=== PATIENT | female | born 1960 | race Caucasian/White ===

== ENCOUNTER 2021-07-07 11:47 | Outpatient (CLI) | payer BC | END 2021-07-07 11:48 | disposition home or self-care (01) | LOC: BICMAMMO 11:47 | PROVIDERS: ATTEND Registered Nurse | DX: Z12.31 Encounter for screening mammogram for malignant neoplasm of breast (principal) | CPT/HCPCS: 77063; 77067 ==

== ENCOUNTER 2022-03-19 10:22 | Outpatient (CLI) | payer BC | END 2022-03-19 10:23 | disposition home or self-care (01) | LOC: LABBT 10:22 | PROVIDERS: ATTEND Neurological Surgery | DX: Z01.818 Encounter for other preprocedural examination (principal); M54.16 Radiculopathy, lumbar region; Z20.822 Contact with and (suspected) exposure to COVID-19 | CPT/HCPCS: 93005; 93010; U0003; U0005 ==

== ENCOUNTER 2022-03-24 07:25 | Day surgery (SDC) | payer BC ==
[2022-03-22 15:31] VITALS: BMI 27.4
[2022-03-24] MEDS ORDERED: Levofloxacin 500 mg/D5W 100 ml Premix Bag ONE (08:32)
[2022-03-24] MEDS ORDERED: Bupivacaine PF 0.5% 30 ML VIAL ONE (09:02)
[2022-03-24] MEDS ORDERED: EPINEPHrine 1 MG/ML AMP ONE (09:02)
[2022-03-24] MEDS ORDERED: Thrombin 5000 UNITS/5 ML VIAL ONE (09:02)
[2022-03-24] MEDS ORDERED: Clindamycin/D5W 900 mg/50 ml Premix Bag ONE (09:15)
[2022-03-24] MEDS ORDERED: fentaNYL Citrate/PF 100 MCG/2 ML SYRINGE ONE (09:22)
[2022-03-24] MEDS ORDERED: Dexamethasone 20 MG/5 ML VIAL ONE (09:31)
[2022-03-24] MEDS ORDERED: Lidocaine 1% PF 5 ML VIAL ONE (09:31)
[2022-03-24] MEDS ORDERED: Glycopyrrolate 0.2 MG/ML 5 ML SYRINGE ONE (09:31)
[2022-03-24] MEDS ORDERED: Ondansetron PF 4 MG/2 ML Vial ONE (09:31)
[2022-03-24] MEDS ORDERED: PROPOFOL 200 MG/20 ML VIAL ONE (09:31)
[2022-03-24] MEDS ORDERED: Esmolol 100 MG/10 ML VIAL ONE (09:31)
[2022-03-24] MEDS ORDERED: Rocuronium Bromide 10 MG/ML (10ML VIAL) ONE (09:31)
[2022-03-24] MEDS ORDERED: PHENYLEPHRINE-NS 100 MCG/ML 10 ML SYRINGE ONE (09:31)
[2022-03-24] MEDS ORDERED: Ketorolac Tromethamine 30 MG/ML VIAL ONE (09:31)
[2022-03-24] MEDS ORDERED: Fentanyl 100 MCG/2 ML VIAL ONE (11:04)
[2022-03-24] MEDS ORDERED: HYDROcodone/Acetaminophen 5/325 mg Tablet ONE (12:54)
== END 2022-03-24 13:13 | disposition home or self-care (01) ==
LOC: SDC 07:25
PROVIDERS: ATTEND Neurological Surgery
PROC: 01NB0ZZ Release Lumbar Nerve, Open Approach (ICD-10-PCS; principal; 2022-03-24)
DX: M48.061 Spinal stenosis, lumbar region without neurogenic claudication (principal); M51.16 Intervertebral disc disorders with radiculopathy, lumbar region; E78.5 Hyperlipidemia, unspecified; I10 Essential (primary) hypertension; F17.210 Nicotine dependence, cigarettes, uncomplicated; G89.29 Other chronic pain; Z79.899 Other long term (current) drug therapy; Z88.0 Allergy status to penicillin; Z88.1 Allergy status to other antibiotic agents; Z88.2 Allergy status to sulfonamides; Z88.8 Allergy status to other drugs, medicaments and biological substances
CPT/HCPCS: 76000; J0171; J1100; J1885; J1956; J2405; J2704; J3010; J3490; S0020

== ENCOUNTER 2022-08-31 08:44 | Observation (INO) | payer BC ==
[2022-08-30 13:10] VITALS: BMI 27.4
[2022-08-31] MEDS ORDERED: Sodium Chloride 0.9% 100 ML ONE ×2 (09:19→11:31)
[2022-08-31] MEDS ORDERED: Vancomycin 1 GM/200 ML (FROZEN) BAG ONE (09:19)
[2022-08-31] MEDS ORDERED: Tranexamic Acid 1,000 MG/10 ML VIAL ONE (09:19)
[2022-08-31 09:51] LABS: SARS-CoV-2 NAA Rapid Test Not Detected (NotDetected)
[2022-08-31] MEDS ORDERED: Midazolam HCl 2 mg/2 ml Vial ONE (11:00)
[2022-08-31] MEDS ORDERED: FENTANYL 50 MCG/ML 1 ML VIAL ONE (11:00)
[2022-08-31] MEDS ORDERED: Ropivacaine 0.5% HCl/PF (150 MG/30 ML VIAL) ONE (11:00)
[2022-08-31] MEDS ORDERED: HYDROcodone/Acetaminophen 10/325 mg Tablet PO PRN (11:14)
[2022-08-31] MEDS ORDERED: Fentanyl 100 MCG/2 ML VIAL SLOW IVP PRN (11:14)
[2022-08-31] MEDS ORDERED: diphenhydrAMINE 25 MG CAP PO PRN (11:14)
[2022-08-31] MEDS ORDERED: Zolpidem Tartrate 5 MG TAB PO PRN (11:14)
[2022-08-31] MEDS ORDERED: Promethazine HCl 25 MG/ML VIAL IM PRN ×2 (11:14→13:22)
[2022-08-31] MEDS ORDERED: Ondansetron PF 4 MG/2 ML Vial IVP PRN (11:14)
[2022-08-31] MEDS ORDERED: Acetaminophen 325 MG TAB PO PRN (11:14)
[2022-08-31] MEDS ORDERED: Potassium Chloride 20 MEQ TAB PO PRN (11:15)
[2022-08-31] MEDS ORDERED: Propofol 500 MG/50 ML VIAL ONE (11:22)
[2022-08-31] MEDS ORDERED: CEFAZOLIN 2 GM VIAL ONE (11:31)
[2022-08-31] MEDS ORDERED: ePHEDrine 50 MG/ML VIAL ONE (11:48)
[2022-08-31] MEDS ORDERED: PHENYLEPHRINE-NS 100 MCG/ML 10 ML SYRINGE ONE (11:48)
[2022-08-31] MEDS ORDERED: fentaNYL PF 100 MCG/2 ML SYRINGE ONE ×2 (11:56→16:43)
[2022-08-31] MEDS ORDERED: Bupivacaine PF 0.5% 30 ML VIAL ONE (12:28)
[2022-08-31] MEDS ORDERED: FENTANYL 50 MCG/ML 1 ML VIAL SLOW IVP PRN ×2 (12:58→12:59)
[2022-08-31] MEDS ORDERED: Hydrochlorothiazide 25 MG TAB PO PRN (13:02)
[2022-08-31] MEDS ORDERED: SUMAtriptan Succinate 50 MG TAB PO PRN (13:04)
[2022-08-31] MEDS ORDERED: Ondansetron HCl/PF 4 MG/2 ML Vial IVP PRN (13:22)
[2022-08-31] MEDS ORDERED: Promethazine HCl 25 MG/ML VIAL IVPB PRN (13:22)
[2022-08-31] MEDS ORDERED: Ketorolac Tromethamine 30 MG/ML VIAL ONE (14:37)
[2022-08-31] MEDS: Ketorolac Tromethamine 30 MG/ML VIAL IVP SCH ×2 (14:38→22:12)
[2022-08-31] MEDS: Sodium Chloride 0.9% 1,000 ML IV SCH ×2 (17:55→23:39)
[2022-08-31] MEDS: HYDROcodone/Acetaminophen 10/325 mg Tablet PO PRN ×2 (17:57→22:12)
[2022-08-31] MEDS: CEFAZOLIN 2 GM in Sodium Chloride 0.9% 100 ML IVPB SCH (20:53)
[2022-08-31] MEDS: Aspirin 81 mg Enteric Coated Tablet PO SCH (20:54)
[2022-08-31] MEDS: Bupropion 150 MG SR TAB PO SCH (20:54)
[2022-08-31] MEDS ORDERED: Atorvastatin Calcium 10 MG TAB PO SCH (21:00)
[2022-09-01] MEDS: HYDROcodone/Acetaminophen 10/325 mg Tablet PO PRN ×4 (02:37→14:01)
[2022-09-01] MEDS: CEFAZOLIN 2 GM in Sodium Chloride 0.9% 100 ML IVPB SCH (04:43)
[2022-09-01 04:54] VITALS: TEMP 98.1
[2022-09-01] MEDS: Ketorolac Tromethamine 30 MG/ML VIAL IVP SCH ×2 (05:33→14:00)
[2022-09-01 06:25] LABS: Hemoglobin 11.2 g/dL (12.0-16.0); Mean Corpuscular HGB CONC 31.9 g/dL (32.0-36.0); Mean Corpuscular Hemoglobin 31.6 pg (27.0-31.0); Mean Corpuscular Volume 99.1 fl (78.0-98.0); Platelet Count 363 10x3/uL (130-400); RBC Distribution Width 12.1 % (11.5-14.5); Red Blood Cell (RBC) Count 3.54 mill/uL (4.20-5.40); White Blood Cell (WBC) Count 10.3 10x3/uL (4.8-10.8)
[2022-09-01] MEDS: Sodium Chloride 0.9% 1,000 ML IV SCH (07:21)
[2022-09-01] MEDS ORDERED: Dexamethasone 10 MG in Sodium Chloride 0.9% 50 ML IVPB SCH (09:00)
[2022-09-01] MEDS ORDERED: Ferrous Gluconate 324 MG TAB PO SCH (09:00)
[2022-09-01] MEDS ORDERED: Venlafaxine 75 MG TAB PO SCH (09:00)
[2022-09-01] MEDS ORDERED: Multivitamin W/ Minerals 1 TAB PO SCH (09:00)
[2022-09-01] MEDS ORDERED: Non-Formulary Item 1 EACH (Multivit-Min/Iron/Folic/Lutein [Centrum Silver Women] 1 TABLET PO SCH (09:00)
[2022-09-01] MEDS ORDERED: Dexamethasone 10 MG/ML VIAL SLOW IVP SCH (09:00)
[2022-09-01] MEDS ORDERED: Senokot S 8.6-50 MG TAB PO SCH (09:00)
[2022-09-01] MEDS ORDERED: Stress 600 With Zinc 1 TAB PO SCH (09:00)
[2022-09-01] MEDS: Aspirin 81 mg Enteric Coated Tablet PO SCH (09:22)
[2022-09-01] MEDS: Bupropion 150 MG SR TAB PO SCH (09:22)
[2022-09-01 12:41] VITALS: BP 132/72
== END 2022-09-01 16:25 | disposition home or self-care (01) ==
LOC: SDC 08:44 → SURG B 17:43
PROVIDERS: ADMIT Orthopaedic Surgery; ATTEND Orthopaedic Surgery
PROC: 0SRB02A Replacement of Left Hip Joint with Metal on Polyethylene Synthetic Substitute, Uncemented, Open Approach (ICD-10-PCS; principal; 2022-08-31)
DX: M16.12 Unilateral primary osteoarthritis, left hip (principal); E78.5 Hyperlipidemia, unspecified; F17.210 Nicotine dependence, cigarettes, uncomplicated; H81.09 Meniere's disease, unspecified ear; G43.909 Migraine, unspecified, not intractable, without status migrainosus; Z79.899 Other long term (current) drug therapy; Z88.1 Allergy status to other antibiotic agents; Z88.2 Allergy status to sulfonamides; Z88.8 Allergy status to other drugs, medicaments and biological substances; Z20.822 Contact with and (suspected) exposure to COVID-19
CPT/HCPCS: 36415; 85027; 96365; 96375; 96376; C1776; G0378; J1100; J1885; J2250; J2704; J2795; J3010; J3370-JW; J3490; S0020; U0002

== ENCOUNTER 2022-11-26 11:30 | Outpatient (CLI) | payer BC ==
[2022-11-26 13:44] LABS: #Eosinphils 0.1 10x3/uL (0.0-0.5); #Monocytes 0.6 10x3/uL (0.0-1.1); #Neutrophils 6.7 10x3/uL (1.5-8.4); %Basophils 0.4 % (0.0-2.0); %Eosinophils 1.3 % (0.0-6.0); %Lymphocytes 31.2 % (18.0-47.0); %Monocytes 5.6 % (0.0-10.0); %Neutrophils 61.2 % (40.0-75.0); Hemoglobin 13.6 g/dL (12.0-15.5); Mean Corpuscular HGB CONC 32.7 g/dL (32.0-36.0); Mean Corpuscular Hemoglobin 30.8 pg (27.0-33.0); Mean Corpuscular Volume 94.1 fl (81.6-98.3); Platelet Count 460 10x3/uL (150-450); RBC Distribution Width 13.8 % (11.5-14.5); Red Blood Cell (RBC) Count 4.42 10x6/uL (3.90-5.03)
[2022-11-26 13:51] LABS: INR-International Normal Ratio 0.9
[2022-11-26 14:09] LABS: Anion Gap 17 mmol/L (10-20); BUN (Urea Nitrogen) 10 mg/dL (9.8-20.1); Calc. Creatinine Clearance 0 mL/min (70-130); Calcium 10.3 mg/dL (7.8-10.44); Carbon Dioxide 21 mmol/L (23-31); Chloride 108 mmol/L (98-107); Estimated GFR 96; Glucose 99 mg/dL (80-115); Potassium 4.6 mmol/L (3.5-5.1); Sodium 141 mmol/L (136-145)
== END 2022-11-26 11:31 | disposition home or self-care (01) ==
LOC: LABBT 11:30
PROVIDERS: ATTEND Orthopaedic Surgery
DX: Z01.818 Encounter for other preprocedural examination (principal); M16.11 Unilateral primary osteoarthritis, right hip
CPT/HCPCS: 80048; 85025; 85610; 87081

== ENCOUNTER 2022-11-29 07:00 | Observation (INO) | payer BC ==
[2022-11-29] MEDS ORDERED: Vancomycin 1 GM/200 ML (FROZEN) BAG ONE (07:40)
[2022-11-29] MEDS ORDERED: Sodium Chloride 0.9% 100 ML ONE (07:40)
[2022-11-29] MEDS ORDERED: Tranexamic Acid 1,000 MG/10 ML VIAL ONE (07:40)
[2022-11-29] MEDS ORDERED: Midazolam HCl 2 mg/2 ml Vial ONE (07:44)
[2022-11-29] MEDS ORDERED: Bupivacaine PF 0.5% 30 ML VIAL ONE ×2 (07:44→09:35)
[2022-11-29] MEDS ORDERED: Fentanyl 100 MCG/2 ML VIAL ONE ×3 (07:44→12:14)
[2022-11-29 08:26] LABS: SARS-CoV-2 NAA Rapid Test Not Detected (NotDetected)
[2022-11-29] MEDS ORDERED: Fentanyl 250 MCG/5 ML VIAL ONE (09:24)
[2022-11-29] MEDS ORDERED: SUGAMMADEX SODIUM 200 MG/2 ML VIAL ONE (09:24)
[2022-11-29] MEDS ORDERED: HYDROmorphone 0.5 MG/0.5 ML SYRINGE ONE (09:24)
[2022-11-29] MEDS ORDERED: Acetaminophen 325 MG TAB PO PRN ×2 (09:26→23:00)
[2022-11-29] MEDS ORDERED: HYDROcodone/Acetaminophen 10/325 mg Tablet PO PRN ×3 (09:26→22:59)
[2022-11-29] MEDS ORDERED: traMADol HCl 50 MG TAB PO PRN ×4 (09:26→22:58)
[2022-11-29] MEDS ORDERED: Ondansetron PF 4 MG/2 ML Vial IVP PRN ×2 (09:26→22:59)
[2022-11-29] MEDS ORDERED: Promethazine HCl 25 MG/ML VIAL IM PRN ×3 (09:26→22:59)
[2022-11-29] MEDS ORDERED: Fentanyl 100 MCG/2 ML VIAL SLOW IVP PRN ×2 (09:26→22:59)
[2022-11-29] MEDS ORDERED: Zolpidem Tartrate 5 MG TAB PO PRN ×2 (09:26→23:00)
[2022-11-29] MEDS ORDERED: diphenhydrAMINE 25 MG CAP PO PRN ×2 (09:26→23:00)
[2022-11-29] MEDS ORDERED: Clindamycin/D5W 900 mg/50 ml Premix Bag ONE (09:35)
[2022-11-29] MEDS ORDERED: Levofloxacin 500 mg/D5W 100 ml Premix Bag ONE (09:35)
[2022-11-29] MEDS ORDERED: NEOSTIGMINE 3 MG/3 ML SYR 3 MG/3 ML SYRINGE ONE (09:50)
[2022-11-29] MEDS ORDERED: Glycopyrrolate 0.2 MG/ML 5 ML SYRINGE ONE (09:50)
[2022-11-29] MEDS ORDERED: Dexamethasone 20 MG/5 ML VIAL ONE (09:50)
[2022-11-29] MEDS ORDERED: Lidocaine 1% PF 5 ML VIAL ONE (09:50)
[2022-11-29] MEDS ORDERED: Rocuronium Bromide 10 MG/ML (10ML VIAL) ONE (09:50)
[2022-11-29] MEDS: CEFAZOLIN 2 GM in Sodium Chloride 0.9% 100 ML IVPB SCH ×2 (09:50→17:42)
[2022-11-29] MEDS ORDERED: Bupivacaine HCl 0.5%/Epinephrine 1:200,000/PF 30 ml Vial ONE (09:50)
[2022-11-29] MEDS ORDERED: Ondansetron PF 4 MG/2 ML Vial ONE ×2 (09:50→11:57)
[2022-11-29] MEDS ORDERED: Metoclopramide HCl 10 MG/2 ML VIAL ONE (09:50)
[2022-11-29] MEDS ORDERED: PROPOFOL 200 MG/20 ML VIAL ONE (09:50)
[2022-11-29] MEDS ORDERED: Ondansetron HCl/PF 4 MG/2 ML Vial IVP PRN (11:23)
[2022-11-29] MEDS: Ketorolac Tromethamine 30 MG/ML VIAL IVP SCH ×2 (13:31→20:13)
[2022-11-29 13:34] VITALS: BMI 22.1
[2022-11-29] MEDS: Sodium Chloride 0.9% 1,000 ML IV SCH ×4 (13:35→23:07)
[2022-11-29] MEDS ORDERED: FLU VACC QS2022-23(6MOS UP)/PF 60 MCG/0.5 ML SYRINGE IM ONE (15:15)
[2022-11-29] MEDS ORDERED: Senokot S 8.6-50 MG TAB PO SCH (21:00)
[2022-11-29] MEDS ORDERED: Aspirin 81 mg Enteric Coated Tablet PO SCH (21:00)
[2022-11-29] MEDS ORDERED: Ferrous Gluconate 324 MG TAB PO SCH (21:00)
[2022-11-29] MEDS: HYDROcodone/Acetaminophen 10/325 mg Tablet PO PRN (23:03)
[2022-11-30] MEDS: Ketorolac Tromethamine 30 MG/ML VIAL IVP SCH ×2 (04:34→12:28)
[2022-11-30] MEDS: HYDROcodone/Acetaminophen 10/325 mg Tablet PO PRN ×3 (04:34→12:26)
[2022-11-30] MEDS: Sodium Chloride 0.9% 1,000 ML IV SCH (08:55)
[2022-11-30] MEDS ORDERED: Senokot S 8.6-50 MG TAB PO SCH (09:00)
[2022-11-30] MEDS ORDERED: Multivitamin W/ Minerals 1 TAB PO SCH ×2 (09:00)
[2022-11-30] MEDS ORDERED: Aspirin 81 mg Enteric Coated Tablet PO SCH (09:00)
[2022-11-30] MEDS ORDERED: Ferrous Gluconate 324 MG TAB PO SCH (09:00)
[2022-11-30 12:59] VITALS: BP 139/74; TEMP 98.9
== END 2022-11-30 13:30 | disposition home or self-care (01) ==
LOC: SDC 07:00 → SURG A 12:16 → UNDODISOB 19:55
PROVIDERS: ADMIT Orthopaedic Surgery; ATTEND Orthopaedic Surgery
PROC: 0SR902A Replacement of Right Hip Joint with Metal on Polyethylene Synthetic Substitute, Uncemented, Open Approach (ICD-10-PCS; principal; 2022-11-29)
DX: M16.11 Unilateral primary osteoarthritis, right hip (principal); E78.5 Hyperlipidemia, unspecified; I10 Essential (primary) hypertension; F17.210 Nicotine dependence, cigarettes, uncomplicated; Z79.899 Other long term (current) drug therapy; Z88.0 Allergy status to penicillin; Z88.1 Allergy status to other antibiotic agents; Z88.2 Allergy status to sulfonamides; Z88.8 Allergy status to other drugs, medicaments and biological substances; Z96.642 Presence of left artificial hip joint; Z20.822 Contact with and (suspected) exposure to COVID-19
CPT/HCPCS: 96365; 96375; 96376; C1776; G0378; J1100; J1170; J1885; J1956; J2250; J2405; J2704; J2765; J3010; J3370-JW; J3490; J7050; S0020; U0002

== ENCOUNTER 2023-04-01 23:26 | Observation (INO) | payer BC, OTHER ==
[2023-04-01] MEDS ORDERED: cefTRIAXone\\ROCEPHIN 2 GM in Sodium Chloride 0.9% 100 ML IVPB SCH (23:45)
[2023-04-01 23:56] VITALS: BMI 28.5
[2023-04-01] MEDS ORDERED: Morphine 2 MG/ML VIAL SLOW IVP PRN (23:58)
[2023-04-01] MEDS ORDERED: Ketorolac Tromethamine 30 MG/ML VIAL IVP PRN (23:59)
[2023-04-02 00:28] LABS: INR-International Normal Ratio 0.9; PTT 35.3 sec (22.9-36.1)
[2023-04-02] MEDS: HYDROcodone/Acetaminophen 5/325 mg Tablet PO PRN ×2 (00:47→11:15)
[2023-04-02] MEDS ORDERED: Ondansetron PF 4 MG/2 ML Vial ONE (07:45)
[2023-04-02] MEDS ORDERED: PROPOFOL 200 MG/20 ML VIAL ONE (07:45)
[2023-04-02] MEDS ORDERED: Lidocaine 1% PF 5 ML VIAL ONE (07:45)
[2023-04-02] MEDS ORDERED: Dexamethasone 20 MG/5 ML VIAL ONE (07:45)
[2023-04-02] MEDS ORDERED: PHENYLEPHRINE-NS 100 MCG/ML 10 ML SYRINGE ONE (07:45)
[2023-04-02] MEDS ORDERED: Promethazine HCl 25 MG/ML VIAL IM PRN (07:55)
[2023-04-02] MEDS ORDERED: Ondansetron HCl/PF 4 MG/2 ML Vial IVP PRN (07:55)
[2023-04-02 09:37] VITALS: BP 121/70; TEMP 97.6
[2023-04-02] MEDS ORDERED: Clindamycin 150 MG CAP PO SCH (10:00)
[2023-04-02] MEDS ORDERED: Doxycycline 100 MG CAP PO SCH ×2 (12:45→21:00)
== END 2023-04-02 12:50 | disposition home or self-care (01) ==
LOC: SURG B 23:27
PROVIDERS: ADMIT Orthopaedic Surgery; ATTEND Orthopaedic Surgery
PROC: 0PST04Z Reposition Right Finger Phalanx with Internal Fixation Device, Open Approach (ICD-10-PCS; principal; 2023-04-01)
DX: S62.663B Nondisplaced fracture of distal phalanx of left middle finger, initial encounter for open fracture (principal); F32.A Depression, unspecified; Z88.0 Allergy status to penicillin; Z79.899 Other long term (current) drug therapy; F17.210 Nicotine dependence, cigarettes, uncomplicated; Z88.1 Allergy status to other antibiotic agents; Z88.2 Allergy status to sulfonamides; Z88.8 Allergy status to other drugs, medicaments and biological substances; W54.0XXA Bitten by dog, initial encounter
CPT/HCPCS: 36415; 85610; 85730; 86850; 86900; 86901; 96374; G0378; J1100; J1885; J2405; J2704